=== PATIENT | male | born 1985 | race African-American/Black ===

== ENCOUNTER 2019-05-20 08:32 | Emergency (ER) | payer MEDICAID, OTHER ==
[~2019-05-20] VITALS: Ht 190.5 cm; Wt 81.6 kg
[2019-05-20 08:40] VITALS: BP 118/76
== END 2019-05-20 09:23 | disposition home or self-care (01) ==
LOC: EDBD 08:32 → ER 08:32
DX: S29.012A Strain of muscle and tendon of back wall of thorax, initial encounter (principal); F17.210 Nicotine dependence, cigarettes, uncomplicated; X50.1XXA Overexertion from prolonged static or awkward postures, initial encounter; Y93.89 Activity, other specified; Y92.89 Other specified places as the place of occurrence of the external cause; Y99.8 Other external cause status

== ENCOUNTER 2019-07-13 09:59 | Emergency (ER) | payer MEDICAID ==
[~2019-07-13] VITALS: Ht 185.4 cm; Wt 81.6 kg
[2019-07-13 10:58] VITALS: BP 136/84
== END 2019-07-13 11:29 | disposition home or self-care (01) ==
LOC: ER 10:04
DX: B00.9 Herpesviral infection, unspecified (principal); J06.9 Acute upper respiratory infection, unspecified; F17.210 Nicotine dependence, cigarettes, uncomplicated